=== PATIENT | male | born 1985 ===

== ENCOUNTER 2025-09-25 00:02 | Emergency (ER) | payer OTHER ==
[~2025-09-25] VITALS: Ht 175.3 cm; Wt 72.6 kg
== END 2025-09-25 01:21 | disposition home or self-care (01) ==
LOC: ER 00:02
DX: S61.421A Laceration with foreign body of right hand, initial encounter (principal); W45.8XXA Other foreign body or object entering through skin, initial encounter; Z88.8 Allergy status to other drugs, medicaments and biological substances; Z88.5 Allergy status to narcotic agent
CPT/HCPCS: 10120; 99283-25